=== PATIENT | female | born 2000 ===

== ENCOUNTER 2023-08-07 12:24 | Outpatient (REF) | payer MEDICAID, SELFPAY ==
--- NOTE | 2023-08-07 11:00 | PAPFT_PTH ---
PATIENT: Caron Reyna LOC: [facility] U#:[id number] AGE/SX: 22/F ROOM: RE08/07/[address]: Treasure Giron MD : 2000 BED: DIS: 08/07/2023 SPEC #: [id number] RECD: 08/07/23 12:38 STATUS: [place] REQ #: [id number] TONY: 08/07/23 11:[address]: Treasure Giron DEPT: [facility] Cytology RECD BY: Luz Marina Das ENTERED: 08/07/23 12:42 SP TYPE: PAPFT OTHR DR: Cassandra Garcia Tissues: 1 - CX/ENDOCX FOR PAP SMEARS Procedures: PAP THIN PREP/[facility] Screening Comments: [id number]
== END 2023-08-07 12:25 | disposition home or self-care (01) ==
LOC: LBN 12:24
PROVIDERS: PCP Internal Medicine; Visit Provider Obstetrics & Gynecology
DX: Z12.4 Encounter for screening for malignant neoplasm of cervix (principal)
CPT/HCPCS: 88142